=== PATIENT | male | born 1940 | race Hispanic/Latino ===

== ENCOUNTER 2024-08-25 15:42 | Emergency (ER) | payer MEDICARE ==
[~2024-08-25] VITALS: Ht 167.6 cm; Wt 58.1 kg
[~2024-08-25 15:42] MED LIST: ACYC400T20 PO; AEC81 PO; BRIM5DRO21 OU; CALC-909 PO; DAPA10TA PO; FERR-82 PO; LEVO50TA11 PO; LEVO5TAB13 PO; MULT-1289 PO; OMEP20CA12 PO; ROSU40TA88 PO; VALA100031 PO
--- NOTE | 2024-08-25 17:02 | HMCIMG ---
CT ABDOMEN/PELVIS W/O CONTRAST HISTORY: Hematuria COMPARISON: None TECHNIQUE: Multiple sequential axial images of the abdomen and pelvis were obtained from the dome of the diaphragm through symphysis pubis. Patient was not given contrast through intravenous route. Oral contrast was not given. FINDINGS: No pleural effusion is seen bilaterally. There is no evidence of parenchymal disease or pulmonary nodule of the visualized lower lungs. Degenerative changes of the thoracolumbar spine are present. The heart is not enlarged. The liver, spleen, adrenal glands and pancreas are unremarkable. No hydronephrosis is seen on the right. There is mild left hydronephrosis and left-sided ureter with questionable mass lesion in the posterior bladder measuring 2 x 4 cm. No evidence of renal stone is seen. Fecal material is seen in the colon. There are normal size retroperitoneal and mesenteric lymph nodes. No ascites is seen. Atherosclerotic changes are present. No definite CT evidence of acute appendicitis is seen. Pelvic sidewalls are symmetric bilaterally. Bladder is moderately distended with air-fluid level. IMPRESSION: 1. There is mild left hydronephrosis and left-sided ureter with questionable mass lesion in the posterior bladder measuring 2 x 4 cm. Findings are suggestive lateral cancer. CT was performed with one or more following dose reduction techniques: automated exposure control, adjustment of the mA and kv according to patient's size, or use of a iterative reconstruction technique.
[2024-08-25 17:08] LABS: BASOPHILS # (AUTO) 0.04 K/uL (0.00-0.20); BASOPHILS % (AUTO) 0.5 % (0.0-5.0); EOSINOPHILS # (AUTO) 0.11 K/uL (0.00-0.70); EOSINOPHILS % (AUTO) 1.4 % (0.0-8.0); HEMATOCRIT 36.8 % (42-54); IMMATURE GRANULOCYTE ABSOLUTE 0.03 K/uL (0-1); LYMPHOCYTES # (AUTO) 1.8 K/uL (1.0-4.8); LYMPHOCYTES % (AUTO) 22.5 % (21.0-51.0); MEAN CORPUSCULAR HEMOGLOBIN 27.3 pg (27.0-33.0); MEAN CORPUSCULAR HGB CONC 30.4 g/dL (32.0-36.0); MEAN CORPUSCULAR VOLUME 89.8 fL (79-99); MONOCYTES # (AUTO) 0.6 K/uL (0.1-1.0); MONOCYTES % (AUTO) 7.6 % (3.0-13.0); NEUTROPHILS # (AUTO) 5.5 K/uL (1.8-7.7); NEUTROPHILS % (AUTO) 67.6 % (40.0-77.0); PLATELET COUNT (AUTO) 213 K/uL (130-400); RED CELL DISTRIBUTION WIDTH 15.9 % (11.0-15.5); WHITE BLOOD COUNT (AUTO) 8.1 K/uL (4.8-10.8)
[2024-08-25 17:16] LABS: CREATININE 1.6 mg/dL (0.5-1.3); POTASSIUM 4.2 mmol/L (3.5-5.1)
--- NOTE | 2024-08-25 17:16 | ERN ---
General Chief Complaint: Blood in Urine: Stated Complaint: HEMATURIA Time Seen by MD: 15:44 Source: patient History of Present Illness Initial Comments Patient is a an 84-year-old gentleman coming in to be evaluated for hematuria. Patient states he was diagnosed with bladder cancer January of last year he states he had surgeries for debulking of the the mass in his bladder and states it was improving until two days ago where he started having more hematuria. He was told that there was another mass which needed to be surgically removed. He states that his urologist he was from [place]. Allergies: Coded Allergies: No Known Drug Allergies (Unverified Allergy, Unknown, 03/22/23) Home Meds Reported Medications Brimonidine Tartrate/Timolol (Brimonidine-Timolol 0.2%-0.5%) 0.2 %-0.5 % Drops, 1 DROP OU BID, DROP 03/22/23 Ferrous Sulfate (Iron) 325 Mg (65 Mg Iron) Tablet, 325 MG PO DAILY, TAB 03/22/23 Omeprazole (Omeprazole) 20 Mg Capsule.dr, 20 MG PO DAILY, CAP 03/22/23 Calcium Carbonate/Vitamin D3 (Calcium 600 + Vit D Caplet) 600 Mg Calcium-10 Mcg (400 Unit) Tablet, 1 EACH PO DAILY, TAB 03/22/23 Multivit-Min/FA/Lycopen/Lutein (Centrum Silver Men Tablet) 300 Mcg-60 Mcg-600 Mcg-300 Mcg Tablet, 1 EACH PO DAILY, TAB 03/22/23 Valacyclovir HCl (Valacyclovir) 1,000 Mg Tablet, 1000 MG PO DAILY PRN for HERPES, TAB X 5 DAYS 03/22/23 Acyclovir (Acyclovir) 400 Mg Tablet, 400 MG PO BID, TAB 03/22/23 Levothyroxine Sodium (Levothyroxine Sodium) 50 Mcg Tablet, 50 MCG PO DAILY, TAB 03/22/23 Aspirin (ASPIRIN 81 MG ECTAB) 81 Mg Ectab, 81 MG PO DAILY, TAB.EC 03/22/23 Dapagliflozin Propanediol (Farxiga) 10 Mg Tablet, 10 MG PO DAILY, TAB 03/22/23 Levocetirizine Dihydrochloride (Levocetirizine Dihydrochloride) 5 Mg Tablet, 5 MG PO HS, TAB 03/22/23 Rosuvastatin Calcium (Rosuvastatin Calcium) 40 Mg Tablet, 40 MG PO HS, TAB 03/22/23 Past Medical History Past Medical History: Other Medical History Other: PARALYSED VOCAL CORDS Past Surgical History: Other Surgical History Other: SX OF BLADDER, CANCER REMOVAL TO LEFT NARE ROS Dictation CONSTITUTIONAL: No chills, no fever, no weakness, no diaphoresis, no malaise. HEAD/FACE: No signs of trauma. EENT: No eye pain, no blurred vision, no tearing, no double vision, no ear pain, no ear discharge, no nose pain, no nasal congestion, no throat pain, no throat swelling, no mouth pain. RESPIRATORY: No cough, no orthopnea, no SOB, no stridor, no wheezing. CARDIOVASCULAR: No chest pain, no edema, no palpitations, no syncope. GASTROINTESTINAL/ABDOMINAL: No abdominal pain, no constipation, no diarrhea, no nausea, no vomiting. GENITOURINARY: No abnormal discharge, no dysuria, no frequent urination, no hematuria. No complaints of pain in the genitals. MUSCULOSKELETAL: No back pain, no gout, no joint pain, no joint swelling, no muscle pain, no muscle stiffness, no neck pain. INTEGUMENTARY: No change in color, no change in hair/nails, no dryness, no lesion, no lumps, no rash. NEUROLOGICAL/PSYCH: No anxiety, not depressed, no emotional problem, no headache, no numbness, no pre-existing deficit, no history of seizures, no tremors, no weakness. HEMATOLOGIC/LYMPHATIC: Not anemic, no history of blood clots, no apparent bleeding, no bruising, glands not swollen. All Systems Negative, Except as Noted. Physical Exam Physical Exam Dictation VITAL SIGNS: Reviewed. GENERAL APPEARANCE: Alert, oriented x3, no acute distress, obese. HEAD AND FACE: Non-traumatic. EYES: PERRL, pink conjunctivas, eyelid no trauma, anterior chamber clear. EARS: Pinnas intact and no signs of trauma or erythema. Ear canals clear and no discharge. TMs no erythema. NOSE: No discharge, no bleeding. OROPHARYNX: Mouth normal, teeth no caries, tongue pink. Pharynx clear, no erythema. Tonsils no exudates, no abscesses noted. Mucous membrane moist. NECK: Supple, non-tender, no thyromegaly, no masses, no JVD, no bruits. BREAST: Deferred. CHEST: No tenderness, no crepitus, no paradoxical movement, no retractions. LUNGS: Clear, well-ventilated, symmetric, no rales, no wheezing, no rhonchi, no stridor, good breath sounds bilaterally. HEART: Regular rate, regular rhythm, no murmur, no gallops. VASCULAR: No peripheral edema. ABDOMEN: Soft, positive bowel sounds, nondistended, no guarding, nontender, no rebound, no masses no hepatomegaly, no splenomegaly, no Michelle's sign, no hernias. RECTAL: Deferred. GENITAL: Deferred. NEUROLOGICAL: Normal speech, gross motor function intact, gross sensory function intact. MUSCULOSKELETAL: Neck nontender, full range of motion, back nontender, full range of motion. EXTREMITIES: Nontender, full range of motion. SKIN: Color pink, dry, no turgor, no rash, no lacerations, no abrasions, no contusions. LYMPHATICS: Deferred. Results Laboratory and Microbiology Lab and Micro Result Laboratory Tests Test 08/25/24 14:07 08/25/24 16:51 Urine Color DARK-BROWN (YELLOW) Urine Appearance TURBID (CLEAR) Urine pH 5.5 (5.0-8.0) Urine Specific Gibbon 1.017 (1.001-1.031) Urine Protein 100 mg/dL (NEGATIVE) H Urine Glucose (UA) 500 mg/dL (NEGATIVE) H Urine Ketones NEGATIVE mg/dL (NEGATIVE) Urine Occult Blood LARGE (NEGATIVE) H Urine Nitrate NEGATIVE (NEGATIVE) Urine Bilirubin NEGATIVE mg/dL (NEGATIVE) Urine Urobilinogen 0.2 mg/dL (0.2-1.0) Urine Leukocyte Esterase 250 Arnold/uL (NEGATIVE) H Urine RBC TNTC /HPF (0-1) H Urine WBC None /HPF (0-1) Urine Bacteria MOD /HPF (None Seen) White Blood Count 8.1 K/uL (4.8-10.8) Red Blood Count 4.10 MIL/uL (4.50-6.20) L Hemoglobin 11.2 g/dL (14.0-18.0) L Hematocrit 36.8 % (42-54) L Mean Corpuscular Volume 89.8 fL (79-99) Mean Corpuscular Hemoglobin 27.3 pg (27.0-33.0) Mean Corpuscular Hemoglobin Concent 30.4 g/dL (32.0-36.0) L Red Cell Distribution Width 15.9 % (11.0-15.5) H Platelet Count 213 K/uL (130-400) Mean Platelet Volume 9.8 fL (7.5-10.5) Immature Granulocyte % (Auto) 0.4 % (0-1) Neutrophils (%) (Auto) 67.6 % (40.0-77.0) Lymphocytes (%) (Auto) 22.5 % (21.0-51.0) Monocytes (%) (Auto) 7.6 % (3.0-13.0) Eosinophils (%) (Auto) 1.4 % (0.0-8.0) Basophils (%) (Auto) 0.5 % (0.0-5.0) Neutrophils # (Auto) 5.5 K/uL (1.8-7.7) Lymphocytes # (Auto) 1.8 K/uL (1.0-4.8) Monocytes # (Auto) 0.6 K/uL (0.1-1.0) Eosinophils # (Auto) 0.11 K/uL (0.00-0.70) Basophils # (Auto) 0.04 K/uL (0.00-0.20) Absolute Immature Granulocyte (auto 0.03 K/uL (0-1) Nucleated Red Blood Cells 0.0 % (0.0-0.19) Red Blood Cell Morphology See comments Sodium Level 145 mmol/L (136-145) Potassium Level 4.2 mmol/L (3.5-5.1) Chloride Level 104 mmol/L (101-111) Carbon Dioxide Level 27 mmol/L (21-32) Blood Urea Nitrogen 27 mg/dL (7-18) H Creatinine 1.6 mg/dL (0.5-1.3) H Glomerular Filtration Rate Calc 42 mL/min (>90) Random Glucose 102 mg/dL (70-105) Total Calcium 9.6 mg/dL (8.5-10.1) Labs Reviewed?: Yes EKG/XRAY/US/CT/MRI CT Scan Comment [address] [place] [address] IMAGING REPORT Signed PATIENT: LETTY WILLSROHINI MR#: [id number] : 1940 SEX: M AGE: 84 LOCATION: [facility] ORDER 15 STATUS: REG ER REPORT#: [id number] SERVICE 14 REASON: HEMATURIA HX OF BLADDER CANCER ORDERING PHYSICIAN: RIGO CHENEY MD PROCEDURE: ABD PEL WO - CT ABDOMEN/PELVIS W/O CONTRAST CT ABDOMEN/PELVIS W/O CONTRAST HISTORY: Hematuria COMPARISON: None TECHNIQUE: Multiple sequential axial images of the abdomen and pelvis were obtained from the dome of the diaphragm through symphysis pubis. Patient was not given contrast through intravenous route. Oral contrast was not given. FINDINGS: No pleural effusion is seen bilaterally. There is no evidence of parenchymal disease or pulmonary nodule of the visualized lower lungs. Degenerative changes of the thoracolumbar spine are present. The heart is not enlarged. The liver, spleen, adrenal glands and pancreas are unremarkable. No hydronephrosis is seen on the right. There is mild left hydronephrosis and left-sided ureter with questionable mass lesion in the posterior bladder measuring 2 x 4 cm. No evidence of renal stone is seen. Fecal material is seen in the colon. There are normal size retroperitoneal and mesenteric lymph nodes. No ascites is seen. Atherosclerotic changes are present. No definite CT evidence of acute appendicitis is seen. Pelvic sidewalls are symmetric bilaterally. Bladder is moderately distended with air-fluid level. IMPRESSION: 1. There is mild left hydronephrosis and left-sided ureter with questionable mass lesion in the posterior bladder measuring 2 x 4 cm. Findings are suggestive lateral cancer. CT was performed with one or more following dose reduction techniques: automated exposure control, adjustment of the mA and kv according to patient's size, or use of a iterative reconstruction technique. DICTATED BY: ROSALINA BLOOM MD DATE: 08/25/241656 ELECTRONICALLY SIGNED BY: ROSALINA BLOOM MD DATE: 08/25/24 170 [facility] MDM: Differential diagnosis: Bladder cancer, bladder mass, hematuria, Rationale: Tests considered and ordered secondary to shared decision making include: Previous outside records reviewed: Old ER visits. Risk of complication and/or morbidity or mortality of patient management: None Medications-Per medication reconciliation Need for hospitalization: Patient does not meet criteria for hospitalization. Need for emergency major/minor surgery: No There are no social concerns with this patient. Prescription drug management Prescriptions will include symptomatic care Patient's prior external medical records from other ER visits were reviewed by me as indicated. Prior testing and results from previous visits were reviewed. Prior tests were taken into account with medical decision making and resource utilization, independent historian/historians were used to obtain complete medical history. Patient's CT scan does show a bladder mass and it is obstructing the left ureter and you can see hydronephrosis and an enlarged left ureter. We have discussed this patient with his urologist in [place] who feels that there is no urgent need for nephrostomy tube as the patient's BUN and creatinine are normal in the patient has no signs of infection. I have explained this to the patient I also told him his hemoglobin was high enough that he does not need a blood transfusion and that he can go home. He plans to drive back to [place] tomorrow. I will discharge him from the ED. I independently interpreted the test that were performed, results were reviewed by me and considered findings on radiology if ordered. Medical management and examination interpretation discussions were had by me with other qualified healthcare professionals as indicated for the patient's ca re. Patient is a an 84-year-old male coming in to be evaluated for hematuria. CT disclose a mass in the bladder which is putting pressure on the ureter causing hydronephrosis. We will call interventional radiologist to see if we can put a temporary nephrostomy tube for transfer patient to wear his urologist his. He was urologist goes to [place]. ED Course Orders Procedure Category Date Status Time Cbc With Differential LAB 08/25/24 Complete 16:15 Basic Metabolic Panel LAB 08/25/24 Complete 16:15 Ct Abdomen/Pelvis W/O CT 08/25/24 Resulted Contrast 16:15 Urinalysis Profile LAB 08/25/24 Complete 19:08 Culture Urine ROSA MARIA 08/25/24 In Process 19:34 Urology Consult CONPHYSVC 08/25/24 Transmitted 19:36 Vital Signs Date Time Temp Pulse Resp B/P (MAP) Pulse Ox O2 Delivery O2 Flow Rate FiO2 08/25/24 17:15 68 17 147/56 96 Room Air* 0 21 08/25/24 15:45 98.1 69 16 138/66 99 Room Air 0 DX & DISP Disposition: Discharge Departure Impression: Primary Impression: Bladder mass Additional Impressions: Hydronephrosis, left, Hydroureter, left Condition: Stable Additional Instructions: Please see your physicians or go to an emergency room if you feel lightheaded and weak from anemia. Referrals: EUGENE DE SOUZA MD (PCP) RIGO CHENEY MD Aug 25, 2024 17:15 DARLENE COLVIN MD Aug 25, 2024 20:19
--- NOTE | 2024-08-25 19:12 | NUR ---
called doctor Dann Rivera office and spoke to home health caregiver Roxanne in regards to trying to get a hold of md due to patient condition, per home health caregiver Shyann Clemens web applications developer and must call [phone].
[2024-08-25 19:33] LABS: APPEARANCE,URINE TURBID (CLEAR); BILIRUBIN,URINE NEGATIVE (NEGATIVE); COLOR,URINE DARK-BROWN (YELLOW); GLUCOSE, URINE (UA) 500 mg/dL (NEGATIVE); KETONES,URINE NEGATIVE (NEGATIVE); LEUKOCYTE ESTERASE ,URINE 250 Leu/uL (NEGATIVE); NITRATE,URINE NEGATIVE (NEGATIVE); OCCULT BLOOD,URINE LARGE (NEGATIVE); PH,URINE 5.5 (5.0-8.0); PROTEIN,URINE 100 mg/dL (NEGATIVE); UROBILINOGEN,URINE 0.2 mg/dL (0.2-1.0)
[2024-08-25 19:34] LABS: ADD UA MICROSCOPIC YES
[2024-08-25 19:43] LABS: BACTERIA,URINE MOD /HPF (None Seen); RBC,URINE TNTC /HPF (0-1)
--- NOTE | 2024-08-25 20:01 | NUR ---
spoke to Doctor Mechelle Allred in regards to patient ct scan and renal function labs, per doctor patient does not need to be admitted, pt is expected to have blood in urine and hydronephrosis due to condition. She indicated pt can be discharged and follow up with doctor Dann Rivera on wednesday.
[2024-08-25 20:31] VITALS: BP 142/62; PULSE 67; RESP 16; TEMP 98.3; O2SAT 97
--- NOTE | 2024-08-27 16:12 | NUR ---
POSITIVE URINE CULTURE: AFTER RECEIVING A +ESBL URINE CX RESULT, I RESEARCHED AND FOUND PT WAS NOT PRESCRIVED ANY ANTIBIOTICS. I SHOWED DR PAVON AND HE REQUESTED THAT I INFORM PT THAT HE NEEDS TO RETURN TO OUR OR A CLOSE ED FOR IV ANTIBIOTIC THERAPY. HE STATED HE WAS IN [place], [place] TO SEE A SURGICAL UROLOGIST FOR REMOVAL OF HIS BLADDER. HIS CONSULT IS TOMORROW. THE PT REQUESTED I SPEAK TO HIS DAUGHTER BETTINA SHANNON AND GIVE HER ALL THE INFORMATION. I READ TO HER THE NAME OF THE INFECTION AND WHICH MEDICATIONS THE GRIS IS SUSCEPTIBLE TO SO THAT THEY MAY INFORM THE SURGEON TOMORROW OR IF THEY CHOSE TO GO IN THIS EVENING. I ALSO PROVIDED THE V NUMBER AND MEDICAL RECORDS EXTENSION SO THAT THE PHYSICIAN MAY REQUEST THE MEDICAL RECORDS REPORT TO CONTINUE PT CARE. PT OTHERWISE DENIED ANY FEVER OR FEELING ANY WORSE THAN WHEN HE FIRST ARRIVED TO THE ED ON 08.25.2024
== END 2024-08-25 21:10 | disposition home or self-care (01) ==
LOC: EDH 15:42
DX: N13.30 Unspecified hydronephrosis (principal); N32.9 Bladder disorder, unspecified; Z79.624 Long term (current) use of inhibitors of nucleotide synthesis; Z79.82 Long term (current) use of aspirin; Z79.84 Long term (current) use of oral hypoglycemic drugs; Z79.890 Hormone replacement therapy; Z79.899 Other long term (current) drug therapy
CPT/HCPCS: 36415; 74176; 80048; 81001; 85025; 87086; 87186; 99284